=== PATIENT | male | born 1965 | race Hispanic/Latino ===

== ENCOUNTER 2017-04-13 09:00 | Outpatient (CLI) | payer OTHER ==
--- NOTE | 2017-04-14 13:55 | Nuclear Medicine Report ---
NUCLEAR MEDICINE THYROID UPTAKE MULTIPLE HISTORY: Abnormal results of thyroid function. COMPARISON: None. TECHNIQUE: 285 microCi of I-123 a was administered. Scintigraphic images of the thyroid gland were obtained. 4 and 24-hour uptake values. FINDINGS: Scintigraphic images of the thyroid gland are within normal limits. No hot or cold nodules appreciated. 4 hour uptake measures 5.9%. Normal range 4-18%. 25 hour uptake measures 6.1%. Normal range 18-36%. IMPRESSION: Decreased 25 hour thyroid uptake as outlined above.
== END 2017-04-13 09:01 | disposition home or self-care (01) ==
LOC: NM 09:00
PROVIDERS: ATTEND Internal Medicine
DX: R94.6 Abnormal results of thyroid function studies (principal)
CPT/HCPCS: 78012; A9516